=== PATIENT | male | born 1970 | race Caucasian/White ===

== ENCOUNTER 2017-04-24 04:57 | Emergency (ER) | payer OTHER ==
[2017-04-24 05:05] VITALS: PULSE 119; RESP 20; TEMP 97
[2017-04-24 05:06] VITALS: BP 135/68
--- NOTE | 2017-04-24 05:09 | ED ---
Skin/Abscess/FB HPI - General Chief complaint: Skin/Abscess/Foreign Body Stated complaint: rash,poss scabies Time Seen by Provider: 04/24/17 05:07 Source: patient, family Mode of arrival: ambulatory Limitations: no limitations - History of Present Illness Initial comments: this patient is a 39-year-old man who presents to be evaluated for a rash. The patient states that [place] had [place] and believes that he had been on the ground and had fire ants that attacked him. he states that over the past few days she has developed a rash to his lower abdomen and to the forearms near the wrists bilaterally. The patient describes it as itching and burning. He also states that from one of the areas he was able to express a small nearly transparent worm. 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 the patient is not having any systemic symptoms, no fever or chills, dyspnea, chest pain, palpitations. No change in urination. No mucous membrane symptoms or upper respiratory. MD complaint: rash Onset/Timin -: days(s) Tetanus Up to Date: yes Location: [facility] Severity: moderate Quality: burning Consistency: constant Improves with: none Worsens with: none Associated symptoms: denies other symptoms Treatments Prior to Arrival: other - Related Data Previous Rx's Medication Instructions Recorded Clotrimazole/Betameth Cream 1 applic TOPICAL BID #15 gm 04/24/17 [Lotrisone] Allergies Allergy/AdvReac Type Severity Reaction Status Date / Time No Known Allergies Allergy Verified 04/24/17 05:05 Review of Systems ROS Statement: Those systems with pertinent positive or pertinent negative responses have been documented in the HPI. ROS Other: All systems not noted in ROS Statement are negative. Constitutional: Denies: fever, chills ENT: Denies: throat pain Respiratory: Denies: cough, dyspnea Cardiovascular: Denies: chest pain, palpitations, edema Genitourinary: Denies: dysuria Musculoskeletal: Denies: joint swelling, arthralgia Skin: Reports: rash Neurological: Denies: headache Psychiatric: Reports: anxiety Past Medical History Past Medical History: No Reported History, GERD/Reflux, Thyroid Disorder History of Any Multi-Drug Resistant Organisms: None Reported Past Surgical History: No Surgical Hx Reported Past Psychological History: No Psychological Hx Reported Smoking Status: Never smoker Past Alcohol Use History: None Reported Past Drug Use History: None Reported General Exam Limitations: no limitations General appearance: alert, in no apparent distress Eye exam: Present: normal appearance. Absent: scleral icterus, conjunctival injection ENT exam: Present: normal oropharynx Respiratory exam: Present: normal lung sounds bilaterally. Absent: respiratory distress, wheezes, rales, rhonchi Cardiovascular Exam: Present: regular rate, normal rhythm, normal heart sounds. Absent: systolic murmur, diastolic murmur GI/Abdominal exam: Absent: tenderness, guarding Extremities exam: Present: normal inspection, normal capillary refill. Absent: pedal edema, joint swelling Skin exam: Present: warm, dry, rash, erythema, other (the patient hasn't erythematous, dermatitis to the abdomen just above the line of his pants as well as to the bilateral wrists. I do not find any evidence of infestation.). Absent: cyanosis, urticaria, vesicles, petechiae, pallor, mottled, abrasion Course Vital Signs 04/24/17 05:01 Temperature 97 F L Pulse Rate 119 H Respiratory 20 Rate Blood Pressure 135/68 O2 Sat by Pulse 97 Oximetry Medical Decision Making - Medical Decision Making patient is a 47-year-old man with what appears to be a dermatitis at exposed areas of skin, at the abdomen and bilateral wrists, where he may have come in contact with some the provoked a dermatitic reaction. patient is adamant that he needs something to treat an infestation but at this point I don't see evidence. We'll refer the patient to dermatology and treat with topical. Disposition Clinical Impression: Dermatitis Disposition: HOME SELF-CARE Condition: Fair Instructions: Acute Rash (ED) Prescriptions: Clotrimazole/Betameth Cream [Lotrisone] 1 applic TOPICAL BID #15 gm Referrals: Bronwyn Sanchez MD [Primary Care Provider] - 1-2 days Julian Unger MD [STAFF PHYSICIAN] - 1-2 days
== END 2017-04-24 05:29 | disposition home or self-care (01) ==
LOC: EC 04:57
DX: L30.9 Dermatitis, unspecified (principal)
CPT/HCPCS: 99282